=== PATIENT | female | born 1995 | race Caucasian/White ===

== ENCOUNTER 2022-08-20 14:02 | Observation (INO) | payer OTHER, SELFPAY ==
[2022-08-20] VITALS (48 sets, daily range): BP systolic 114–167; BP diastolic 73–118; PULSE 84–122; RESP 12–38; TEMP 36.6; O2SAT 94–100; BMI 27.7
--- NOTE | ~2022-08-20 | CT_ITS ---
EXAMINATION: CT brain wo con INDICATION: Headache COMPARISON: None TECHNIQUE: Standard unenhanced head CT. The dose-length product (DLP) was 681.00 mGy-cm. The mA was a djusted according to patient size. Iterative reconstruction technique was employed. FINDINGS: There is no intracranial hemorrhage, acute infarction, or abnormal mass lesion. The ventric les are normal. There is no abnormal mass effect or midline shift. The martinez-white matter differentiat ion is normal. The basal cisterns are patent. The orbits are normal. There is a polyp or mucous reten tion cyst of the right maxillary sinus. IMPRESSION: 1. No acute intracranial abnormality. Reviewed, dictated and finalized at location A.
--- NOTE | ~2022-08-20 | XR_ITS ---
EXAMINATION: XR chest ET placement DATE: 08/20/2022 14:58 INDICATION: Intubation. Endotracheal tube adjustment. TECHNIQUE: A single frontal view of the chest was obtained. COMPARISON: Chest single view at 2:48 PM FINDINGS: There is mild atelectasis in right lower lung zone. No pleural effusion or pneumothorax. Th e heart size is normal. The endotracheal tube tip is 5.6 cm above the mina. IMPRESSION: 1. Endotracheal tube tip 5.6 cm above the mina. 2. Mild atelectasis in right lower lung zone with interval improvement. Reviewed, dictated and finalized at location A.
--- NOTE | ~2022-08-20 | XR_ITS ---
CORRECTED REPORT order changed [facility] [place] 08/20/22 This report was recreated on 08/20/22. Original report was signed by Ramone Tse M.D. on 08/20/2022 14:45 CDT EXAMINATION: XR chest ET placement DATE: 08/20/2022 14:43 INDICATION: Intubation. TECHNIQUE: A single frontal view of the chest was obtained. COMPARISON: Chest 2 views 08/16/2016 FINDINGS: The right lung is small. There are airspace opacities in all right lung zones, likely atelectasis. No pleural effusion or pneumothorax. The heart size is normal. The endotracheal tube tip is in the left mainstem bronchus. IMPRESSION: 1. Endotracheal tube tip in the left mainstem bronchus. Retraction 5 cm is recommended. I called this result to Dr. Munguia. Reviewed, dictated and finalized at location A. MTDD IMPRESSION: 1. Endotracheal tube tip in the left mainstem bronchus. Retraction 5 cm is emmanuel mmended. I called this result to Dr. Munguia.
--- NOTE | ~2022-08-20 | CT_ITS ---
EXAMINATION: CT abdomen pelvis w con DATE: 08/20/2022 20:24 INDICATION: Abdominal pain. TECHNIQUE: Computed tomography (CT) of the abdomen and pelvis was performed with 100 mL Omnipaque-350 intravenous contrast. Automated exposure control and iterative reconstruction technique were employe d. The dose-length product was 496.27 mGy-cm. COMPARISON: None FINDINGS: Small amount of nonbridging callus formation about healing subacute fractures of the posterior right eighth and ninth ribs. Discoid atelectasis in the right middle and lower lobes. No pleural effusion. Heart size is normal. No pericardial effusion. Small sliding-type hiatal hernia versus wall thickenin g the distal esophagus with urinalysis within the majority. Cholecystectomy clips at the gallbladder fossa. Liver, spleen, pancreas, bilateral adrenal glands and kidneys are normal. Bowels including the appendix are normal. Gas and a Brown catheter within the decompressed bladder. 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 Bilateral adnexa are unremarkable. No free intraperitoneal gas or fluid. No pathologic ally enlarged abdominal or pelvic lymphadenopathy. Chronic appearing mild anterior wedging at T11 and T12. IMPRESSION: 1. No acute intra-abdominal/pelvic process. 2. Small sliding-type hiatal hernia versus distal esophageal wall reinsertion the setting of esophagi tis. 3. 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 4. Healing subacute posterior right eighth and ninth rib fractures. Reviewed, dictated and finalized at location A. IMPRESSION: 1. No acute intra-abdominal/pelvic process. 2. Small sliding-type hiatal hernia versus distal esophageal wall reinsertion t he setting of esophagitis. 3. 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 4. Healing subacute posterior right eighth and ninth rib fractures.
[2022-08-20] MEDS: NALOXONE HCL INJ 2 MG/2 ML AMP IV PUSH ×2 (14:05→14:07)
[2022-08-20 14:13] LABS: Glucose Point of Care 169 mg/dl (65-105)
[2022-08-20] MEDS: ONDANSETRON INJ 4 MG/2 ML VIAL IV PUSH ×2 (14:25→19:13)
[2022-08-20] MEDS: SODIUM CHLORIDE 0.9% IV 1,000 ML 999 ML IV CONT (14:30)
[2022-08-20] MEDS: SUCCINYLCHOLINE CHLORIDE 20 MG/ML 10 ML VIAL 120 MG IV PUSH (14:32)
[2022-08-20] MEDS: ETOMIDATE 20 MG/10 ML AMPUL IV PUSH (14:32)
--- NOTE | 2022-08-20 14:37 | ECG_ITS ---
Measurements Intervals [place] Rate: 95 P: 19 ND: 105 QRS: 72 QRSD: 89 T: 71 QT: 359 QTc: 453 Interpretive Statements SINUS RHYTHM WITH SHORT ND INTERVAL BORDERLINE ECG NO PREVIOUS ECG AVAILABLE FOR COMPARISON Electronically Signed On 08-20-2022 15:58:32 CDT by Matt Boyle D.O.
[2022-08-20] MEDS: MIDAZOLAM HCL (*CRX) 2 MG/2 ML VIAL IV PUSH ×3 (14:42→14:55)
[2022-08-20] MEDS: MIDAZOLAM 100MG/NS 100ML(*CRX) 100 MG/100 ML BAG IV CONT (14:43)
[2022-08-20] MEDS: fentaNYL CITRATE INJ (*CRX) 100 MCG/2 ML VIAL 75 MCG IV PUSH (14:50)
[2022-08-20 14:58] LABS: Base Excess ABG -7.5 mmol/L (0-2); HCO3 ABG 17.9 mmol/L (23-29); Oxygen Content ABG 20.2 %vol (16.0-22.0); Oxygen Saturation ABG 99.3 % (95-97); Oxyhemoglobin 98.5 % (94-100); PCO2 ABG 36.2 mmHg (35-45); PO2 ABG 472.2 mmHg (80-90); Total Hemoglobin 13.7 g/dL (12.0-18.0); pH ABG 7.31 (7.35-7.45)
[2022-08-20 14:59] LABS: Device OTHER DEVICE; Modified Allen's Test Pass; Site Drawn RIGHT RADIAL
[2022-08-20 15:00] LABS: Basophils Absolute Auto 0.06 K/mm3 (0.00-0.10); Basophils Percent Auto 0.5 % (0.0-1.0); Eosinophils Absolute Auto 0.01 K/mm3 (0.02-0.50); Eosinophils Percent Auto 0.1 % (1.0-6.0); Hematocrit 40.9 % (35.0-49.0); Immature Granulocyte Absolute 0.11 K/mm3 (0.00-0.00); Immature Granulocyte Percent A 0.8 % (0.0-0.0); Lymphocytes Absolute Auto 2.93 K/mm3 (1.10-4.50); Lymphocytes Percent Auto 22.3 % (18.0-42.0); Mean Corpuscular HGB Conc 31.8 g/dL (32.0-36.0); Mean Corpuscular Hemoglobin 28.6 pg (27.0-31.0); Mean Corpuscular Volume 89.9 fL (78.0-102.0); Mean Platelet Volume 10.1 fl (9.2-11.8); Monocytes Absolute Auto 0.29 K/mm3 (0.10-0.90); Monocytes Percent Auto 2.2 % (2.0-11.0); Neutrophils Absolute Auto 9.7 K/mm3 (1.7-7.2); Neutrophils Percent Auto 74.1 % (50.0-70.0); Platelet Count Result 369 K/mm3 (150-420); Red Blood Count 4.55 M/mm3 (4.20-5.40); Red Cell Distribution Width 13.9 % (11.6-14.4); White Blood Count 13.1 K/mm3 (4.8-10.8)
[2022-08-20 15:12] LABS: Partial Thromboplastin Time 24.6 SEC (23.90-30.70)
[2022-08-20] MEDS: PROPOFOL IV EMULSION 100 ML 10.8 MG IV CONT (15:14)
[2022-08-20] MEDS: PROPOFOL IV EMULSION 200 MG/20 ML VIAL 10 MG IV PUSH ×2 (15:14→15:55)
[2022-08-20 15:18] LABS: Alanine Aminotransferase 26 U/L (14-59); Albumin Level 3.5 g/dL (3.4-5.0); Alkaline Phosphatase 169 U/L (46-116); Anion Gap 13 mmol/L (8-16); Aspartate Amino Transferase 20 U/L (15-37); Bilirubin,Total 0.3 mg/dL (0.00-1.00); Blood Urea Nitrogen 16 mg/dL (7-18); Calcium 9.1 mg/dL (8.5-10.1); Carbon Dioxide 22 mmol/L (21-32); Chloride 100 mmol/L (98-108); Estimated Glomerular Filt Rate > 60; Glucose 234 mg/dL (70-99); Lactic Acid Reflex 4.9 mmol/L (0.4-2.0); Osmolality Calculated 289 mOsm/kg (285-295); Potassium 4.3 mmol/L (3.5-5.1); Sodium 135 mmol/L (136-145); Total Protein 7.5 g/dL (6.4-8.2); Troponin I 4.4 ng/L (0.00-60.4)
[2022-08-20 15:19] LABS: Ammonia < 10 umol/L (11-32)
--- NOTE | 2022-08-20 15:49 | ED.GENADULT ---
HPI - General Adult General Chief complaint: Altered Mental Status <Suraj Munguia DO - Last Filed: 08/21/22 08:14> Stated complaint: unresponsive <Suraj Munguia DO - Last Filed: 08/21/22 08:14> Time Seen by Provider: 08/20/22 20:16 <Suraj Munguia DO - Last Filed: 08/21/22 08:14> History of Present Illness HPI narrative: Sushila is a 26F that was brought in by a man (unknown relationship) and he stated that she was fine this morning but then went unresponsive. He said she was a diabetic and used to do methamphetamine. Shortly after this he left and no further history could be obtained due to altered mental status. <Suraj Munguia DO - Last Filed: 08/21/22 08:14> Related Data Home medications: Home Medications Medication Instructions Recorded Confirmed insulin lispro 100 unit/mL 15 unit subcut TID PRN low blood 08/20/22 08/20/22 subcutaneous solution (Humalog sugar U-100 Insulin) <Suraj Munguia DO - Last Filed: 08/21/22 08:14> Allergies/adverse reactions: Allergies Allergy/AdvReac Type Severity Reaction Status Date / Time amoxicillin [Augmentin] Allergy Intermediate Unknown Verified 08/20/22 15:42 clavulanic acid [Augmentin] Allergy Intermediate Unknown Verified 08/20/22 15:42 metoclopramide [Reglan] Allergy Intermediate Unknown Verified 08/20/22 15:42 Penicillins Allergy Intermediate Unknown Verified 08/20/22 15:42 <Suraj Munguia DO - Last Filed: 08/21/22 08:14> Review of Systems Review of Systems: ROS unobtainable: Yes unobtainable due to endotracheal tube <Suraj Munguia DO - Last Filed: 08/21/22 08:14> [facility] Social History Social History: Social History Smoking status: Never smoker Substance use: current Substance use type: marijuana and sedatives Last use: 08/20/22 Spiritual care concerns: No <Suraj Munguia DO - Last Filed: 08/21/22 08:14> Exam Const: Nutritional Appearance: well nourished <Suraj PAlmita Munguia, DO - Last Filed: 08/21/22 08:14> Other: Sushila was comatose and would only intermitently respond to pain <Suraj P. Ezra, DO - Last Filed: 08/21/22 08:14> HENMT: Ears: external ears normal <Suraj P. Ezra, DO - Last Filed: 08/21/22 08:14> General nose exam: Normal external nose present <Suraj P. Ezra, DO - Last Filed: 08/21/22 08:14> Face and sinus: normal facial exam <Suraj P. Ezra, DO - Last Filed: 08/21/22 08:14> Mouth: Yes Normal oral and palatal mucosa present <Suraj P. Ezra, DO - Last Filed: 08/21/22 08:14> Other: Normocephalic, atraumatic <Suraj PAlmita Munguia, DO - Last Filed: 08/21/22 08:14> Eyes: Conjunctivae: conjunctivae normal <Suraj P. Ezra, DO - Last Filed: 08/21/22 08:14> Other: Pinpoint pupils <Suraj P. Ezra, DO - Last Filed: 08/21/22 08:14> Neck: Other: NOrmal to inspection <Suraj P. Ezra, DO - Last Filed: 08/21/22 08:14> Chest: Other: NO deformity <Suraj PAlmita Munguia, DO - Last Filed: 08/21/22 08:14> Resp: Other: Snoring respirations <Suraj P. Ezra, DO - Last Filed: 08/21/22 08:14> Cardio: Rate: regular rate <Suraj P. Ezra, DO - Last Filed: 08/21/22 08:14> Rhythm: regular rhythm <Suraj P. Ezra, DO - Last Filed: 08/21/22 08:14> Heart sounds: no murmurs <Suraj P. Ezra, DO - Last Filed: 08/21/22 08:14> GI: Other: Decreased bowel sounds, No deformity <Suraj P. Buschling, DO - Last Filed: 08/21/22 08:14> Skin: General skin exam: normal color <Suraj Munguia DO - Last Filed: 08/21/22 08:14> Neuro: General: moves all extremities <Suraj Munguia DO - Last Filed: 08/21/22 08:14> Other: Erratic neuro exam. Most of the time he would not respond to any commands, and did spontaneously open her eyes twice. However, almost all the time she minimally withdrew from pain (sternal rub), never spoke, and never followed a command She did move all extre
[2022-08-20 16:09] LABS: Appearance Urine Clear (Clear); Bilirubin Urine Negative (Negative); Color Urine Light Yellow (Yellow); Glucose Urine UA 3+ (Negative); Ketones Urine 2+ (Negative); Leukocyte Esterase Ur Negative LEU/UL (Negative); Nitrate Urine Negative (Negative); Protein Urine Trace (Negative); Specific Grav Ur 1.025 (1.010-1.020); Urobilinogen Urine 0.2 mg/dL (0.2-1.0); pH Urine 5.5 (5.0-8.0)
[2022-08-20 16:16] LABS: Add Urine Microscopic? YES; Blood Urine Trace-Intact (Negative)
[2022-08-20 16:18] LABS: RBC Urine 0-2 /hpf (0-2)
[2022-08-20 16:19] LABS: Bacteria Urine Trace /hpf; Squamous Epithelial Cell Urine Few /hpf (Few); WBC Urine None seen /hpf (0-3)
[2022-08-20 16:22] LABS: Amphetamine Screen Urine Negative (Negative); Barbiturate Screen Urine Negative (Negative); Benzodiazepines Screen Urine Positive (Negative); Cannabinoid Screen Urine Positive (Negative); Cocaine Screen Urine Negative (Negative); Methadone Screen Urine Negative (Negative); Opiate Screen Urine Negative (Negative); Phencyclidine Screen Urine Negative (Negative)
[2022-08-20 16:48] LABS: Lipase 52 U/L (73-393)
[2022-08-20 17:00] LABS: Urine Pregnancy Test Negative
--- NOTE | 2022-08-20 17:00 | PC.NURSE ---
[address] with RT NURSE AND TECH 1520 PT THREW UP AROUND TUBE MEDS GIVEN 1530 PT PUT ON VENT 1558 GONZALEZ CATH PLACED 1625 PT EXTUBATED HER SELF
[2022-08-20 17:01] LABS: Pregnancy On Board Control Positive
--- NOTE | 2022-08-20 17:31 | PC.NURSE ---
1443 VERSED GTT STARTED AT 5MG/HR AND STOPPED AT 1625 PROPOFOL STARTED AT 1514 BOLUS 10ML GIVEN AND GTT AT 10.8MCG/KG/MIN THEN AT 1555 PROPOFOL INCREASED TO 21.6 MCG/KG/MIN AND 10ML BOLUS GIVEN
[2022-08-20 17:55] LABS: Reflex Lactic Acid Yes or No Add Lactic
--- NOTE | 2022-08-20 19:05 | PC.NURSE ---
Care resumed, pt is alert upon entering room, having dry heaves and c/o severe abd cramping and pain. Pt given Zofran as per order but is refusing an abd CT at this time until she speaks to Dr. MOREJON informed that pt wishes to speak to him before having the CT.
[2022-08-20 19:27] LABS: Lactic Acid 1.7 mmol/L (0.4-2.0)
[2022-08-20] MEDS: PANTOPRAZOLE SODIUM IV 40 MG VIAL IV PUSH (19:51)
[2022-08-20] MEDS: HALOPERIDOL LACTATE 5 MG/ML VIAL IV PUSH (19:53)
[2022-08-20 21:03] LABS: Glucose Point of Care 444 mg/dl (65-105)
--- NOTE | 2022-08-20 21:04 | PC.NURSE ---
Pts finger stick BS is at 444, orders obtained from ERP. Pt is A&O x3 and answers all questions appropriately when asked by Dr Scanlon. Pt still has c/o abd pains, CT results explained to pt being negative results. POC discussed c pt. Monitor shows SR, call placed to [place] for transfer.
--- NOTE | 2022-08-20 21:10 | PC.NURSE ---
Spoke to yoni Fischer supv at [place], info given to have pt admitted here since she is medical and doesn't need ICU or IMU status. Call back placed to [facility] Do. Unable to reach at this time, awaiting hospitalist to call back.
[2022-08-20] MEDS: SODIUM CHLORIDE 0.9% IV 500 ML 999 ML IV CONT (21:15)
--- NOTE | 2022-08-20 21:32 | PC.NURSE ---
Call back from [place], [facility] spoke to Dr Scanlon and accepted for admit. Pt will be 23 hr obs.
[2022-08-20 21:50] LABS: Acetone Small (Negative)
[2022-08-20] MEDS: SODIUM CHLORIDE 0.9% IV 1,000 ML 150 ML IV CONT (21:54)
--- NOTE | 2022-08-20 21:56 | PC.NURSE ---
Monitor dc'd and urinary catheter removed and dc'd per ERP order. Pt will go to Rm 206, call placed to special agent in chargeZEKE Oshea RN. Recheck of pts BS noted to be 444, order for 12Units SQ obtained from Dr Scanlon.
[2022-08-20 21:59] LABS: Glucose Point of Care 444 mg/dl (65-105)
[2022-08-20] MEDS: INSULIN HUMAN REGULAR (*BKC) 100 UNITS/ML 12 UNITS SUB-Q (21:59)
--- NOTE | 2022-08-20 22:35 | ADMGEN ---
This patient, Sushila Gregory, was admitted to 2nd Floor Room 206-1. Patient/family oriented to hospital policies and general routines including ID bracelet, bed and alarms, visiting hours, pain management, procedures, bathroom and other care routines, personal items, smoking policy, room service/diet, and visiting hours. Information on how to activate the Rapid Response Team has been discussed. Patient/Family are encouraged to report perceived risks to care and to ask questions if they do not understand what they are told or what they should do.
[2022-08-20 22:45] LABS: Glucose Point of Care 441 mg/dl (65-105)
[2022-08-20] MEDS: ACETAMINOPHEN 325 MG TABLET 650 MG PO (22:59)
[2022-08-21] VITALS: BP 154/87; PULSE 113; RESP 18; TEMP 36.7; O2SAT 99
[2022-08-21 00:19] LABS: Glucose Point of Care 195 mg/dl (65-105)
[2022-08-21 05:29] LABS: Hematocrit 35.8 % (35.0-49.0); Hemoglobin 11.3 g/dL (12.0-15.0); Mean Corpuscular HGB Conc 31.6 g/dL (32.0-36.0); Mean Corpuscular Hemoglobin 28.5 pg (27.0-31.0); Mean Corpuscular Volume 90.2 fL (78.0-102.0); Mean Platelet Volume 9.8 fl (9.2-11.8); Platelet Count Result 328 K/mm3 (150-420); Red Blood Count 3.97 M/mm3 (4.20-5.40); Red Cell Distribution Width 13.8 % (11.6-14.4); White Blood Count 13.6 K/mm3 (4.8-10.8)
[2022-08-21] MEDS: ACETAMINOPHEN 325 MG TABLET 650 MG PO (05:57)
[2022-08-21 06:02] LABS: Alanine Aminotransferase 20 U/L (14-59); Albumin Level 2.8 g/dL (3.4-5.0); Alkaline Phosphatase 140 U/L (46-116); Anion Gap 13 mmol/L (8-16); Aspartate Amino Transferase 14 U/L (15-37); Bilirubin,Total 0.5 mg/dL (0.00-1.00); Blood Urea Nitrogen 10 mg/dL (7-18); Calcium 8.1 mg/dL (8.5-10.1); Carbon Dioxide 20 mmol/L (21-32); Chloride 101 mmol/L (98-108); Estimated CRCL calculation 96 ml/min; Estimated Glomerular Filt Rate > 60; Glucose 248 mg/dL (70-99); Osmolality Calculated 285 mOsm/kg (285-295); Sodium 134 mmol/L (136-145); Total Protein 6.1 g/dL (6.4-8.2)
[2022-08-21 08:00] VITALS: BP 98/61; PULSE 107; RESP 14; TEMP 36.6; O2SAT 97
[2022-08-21 08:02] LABS: Glucose Point of Care 394 mg/dl (65-105)
[2022-08-21] MEDS: ENOXAPARIN 40 MG/0.4 ML SYRINGE SUB-Q (08:54)
[2022-08-21] MEDS: PANTOPRAZOLE SODIUM IV 40 MG VIAL IV PUSH (08:55)
[2022-08-21 11:48] LABS: Glucose Point of Care 328 mg/dl (65-105)
[2022-08-21] MEDS: ONDANSETRON INJ 4 MG/2 ML VIAL IV PUSH (11:48)
[2022-08-21] MEDS: hydrOXYzine HCL 25 MG TABLET 50 MG PO (11:49)
[2022-08-21] MEDS: DICYCLOMINE HCL 10 MG CAPSULE 20 MG PO (11:49)
--- NOTE | 2022-08-21 11:51 | PC.NURSE ---
given bentyl for abd pain and zofran and hydroxizine for anxiety
[2022-08-21] MEDS: NALTREXONE HCL 50 MG TABLET PO (12:02)
--- NOTE | 2022-08-21 12:07 | PM.IMHP ---
H&P: HPI History of Present Illness Date/Time: 08/21/22 12:07 Chief Complaint: Unresponsive Narrative: This is a 26-year-old female who presented to our emergency department unresponsive. She has a past medical history of diabetes and substance abuse. Patient is unsure of what occur that into her here in the emergency department. Patient notes that she has been clean from drugs for quite some time now. She questions how amphetamines were found in her system. Once she was educated on what amphetamines was she notes that while she was at her mom's house a couple days ago she had abdominal pain and her mom gave her one of her Xanax. While in the emergency room patient was intubated per notes and self at that extubated herself. Patient was initially refused for admission due to hypotension and recent intubation. After several hours of being in the emergency department and an improvement with her blood pressure patient was admitted. Vital signs in ER 97.8, 107, 14, 9861, 97% on 4 L nasal cannula WBCs 13.1, hemoglobin 13.0, hematocrit 40.9, platelets 396, sodium 135, K4.3, BUN 16, creatinine 0.94, glucose 444, total bilirubin 0.3, AST 20, ALT 26, troponin 4.4, lactic acid 4.9, UA positive for protein glucose ketones CT of the head abdomen and chest x-ray unremarkable. Patient admitted for altered mental status . The patient denies SOB, CP, palpitation, extremity numbness, lightheadedness, dizziness, constipation, diarrhea, chills, or fever. She does have nausea and vomiting. Patient notes that she has not had any illegal drugs in several and she is going. Review of Systems Review of Systems: A 14 organ system Review of Systems was performed and pertinent positives included in the HPI, otherwise remaining ROS is negative. [facility] Social History Social History Smoking status: Never smoker Substance use: current Substance use type: marijuana and sedatives Last use: 08/20/22 Spiritual care concerns: No Meds Home Medications and Allergies Home Medications Medication Instructions Recorded Confirmed Type insulin lispro 100 unit/mL 15 unit subcut TID PRN low blood 08/20/22 08/20/22 History subcutaneous solution (Humalog sugar U-100 Insulin) naltrexone 50 mg tablet 50 mg PO DAILY 08/21/22 08/21/22 History Allergies Allergy/AdvReac Type Severity Reaction Status Date / Time amoxicillin [Augmentin] Allergy Intermediate Unknown Verified 08/20/22 15:42 clavulanic acid [Augmentin] Allergy Intermediate Unknown Verified 08/20/22 15:42 metoclopramide [Reglan] Allergy Intermediate Unknown Verified 08/20/22 15:42 Penicillins Allergy Intermediate Unknown Verified 08/20/22 15:42 Vital Signs Vital Signs - 24 hr 08/20/22 15:30 08/20/22 14:51 08/20/22 14:58 Temperature Pulse Rate 122 H 100 Respiratory Rate 21 H 12 Blood Pressure 146/100 H Pulse Oximetry 100 100 Oxygen Delivery Mechanical Ventilation Mechanical Ventilation Mechanical Ventilation Oxygen Flow Rate 08/20/22 15:00 08/20/22 15:01 08/20/22 15:06 Temperature Pulse Rate 119 H 99 119 H Respiratory Rate 23 H 16 25 H Blood Pressure 155/105 H 152/113 H Pulse Oximetry 100 100 100 Oxygen Delivery Mechanical Ventilation Mechanical Ventilation Mechanical Ventilation Oxygen Flow Rate 08/20/22 15:15 08/20/22 15:16 08/20/22 15:31 Temperature Pulse Rate 103 H 98 99 Respiratory Rate 38 H 22 H Blood Pressure 133/85 131/86 Pulse Oximetry 100 100 100 Oxygen Delivery Bag Valve Mask Bag Valve Mask Bag Valve Mask Oxygen Flow Rate 08/20/22 15:32 08/20/22 15:33 08/20/22 15:45 Temperature Pulse Rate 96 99 96 Respiratory Rate 19 12 12 Blood Pressure 153/99 H Pulse Oximetry 100 100 100 Oxygen Delivery Bag Valve Mask Bag Valve Mask Mechanical Ventilation Oxygen Flow Rate 08/20/22 15:46 08/20/22 15:14 08/20/22 15:47 Temperature Pulse Rate 97 100 98 Respiratory Ra
[2022-08-21 13:00] LABS: Basophils Absolute Auto 0.06 K/mm3 (0.00-0.10); Basophils Percent Auto 0.4 % (0.0-1.0); Eosinophils Absolute Auto 0.04 K/mm3 (0.02-0.50); Eosinophils Percent Auto 0.3 % (1.0-6.0); Hematocrit 38.4 % (35.0-49.0); Hemoglobin 11.9 g/dL (12.0-15.0); Immature Granulocyte Absolute 0.11 K/mm3 (0.00-0.00); Immature Granulocyte Percent A 0.7 % (0.0-0.0); Lymphocytes Absolute Auto 3.34 K/mm3 (1.10-4.50); Lymphocytes Percent Auto 20.9 % (18.0-42.0); Mean Corpuscular Hemoglobin 28.4 pg (27.0-31.0); Mean Corpuscular Volume 91.6 fL (78.0-102.0); Mean Platelet Volume 9.7 fl (9.2-11.8); Monocytes Absolute Auto 0.62 K/mm3 (0.10-0.90); Monocytes Percent Auto 3.9 % (2.0-11.0); Neutrophils Absolute Auto 11.8 K/mm3 (1.7-7.2); Neutrophils Percent Auto 73.8 % (50.0-70.0); Platelet Count Result 337 K/mm3 (150-420); Red Blood Count 4.19 M/mm3 (4.20-5.40); Red Cell Distribution Width 13.9 % (11.6-14.4)
--- NOTE | 2022-08-21 15:24 | PC.NURSE ---
Pt sitting bedside visiting c family in room. Upon assessment pt is voicing opinion c her family on what occurred yesterday. She wants to leave and go home, stating she is feeling fine and angry c her b-friend. Pts aunt and friend are willing to take her home at this time, she states if she can't get d/c papers she will sign AMA. Pt is A&O x4, walks steadily around room and wants to go home and will continue to check her BS at home and f/u c her FMD.
--- NOTE | 2022-08-21 15:31 | PC.NURSE ---
Call placed by charge nurse ZEKE Galaviz to BREN[facility] Do for orders, awaiting call back.
[2022-08-21 15:32] VITALS: BP 128/74; PULSE 100; RESP 20; O2SAT 98
--- NOTE | 2022-08-21 15:36 | PC.NURSE ---
provider josesito notified of pt's desire to leave with her aunt, aunt is agreeable to take pt home and care for her, inpatient care manager rn does not feel the pt should leave due to her uncontrolled sugar levels, pt made aware of this and wants to leave ama, nurse is aware and will discuss risks with pt and family
--- NOTE | 2022-08-21 15:40 | PC.NURSE ---
Charge nurse spoke to BRENDA Do and then spoke c pt about needing to sign AMA if she wants to leave due to her BS elevated readings. Pt insistent that she isn't staying and want to leave AMA. Discussed risks/benefits and reason to stay and pt still signed AMA paperwork. Aunt here and going to take pt home c her.
--- NOTE | 2022-08-21 15:45 | PC.NURSE ---
X2 IV sites d/c'd and pt given instruction on d/c f/u c her FMD and taking her BS at home. Pt is agreeable to all instructions given and states she has been dealing c elevated BS for years ansd knows how to care for it at home. After signing paperwork pt left ambulatory steadily from room c her aunt and friend.
--- NOTE | 2022-08-22 14:44 | PC.NURSE ---
Invalid phone number.
== END 2022-08-21 15:45 | disposition left against medical advice (07) ==
LOC: CHSED 21:34 → CHS2ND 22:05
PROVIDERS: Family Medicine; Nurse Practitioner; Admitting Provider Internal Medicine; Emergency Provider Emergency Medicine; Visit Provider Internal Medicine
DX: F12.10 Cannabis abuse, uncomplicated (principal); F13.10 Sedative, hypnotic or anxiolytic abuse, uncomplicated; E11.9 Type 2 diabetes mellitus without complications; R10.9 Unspecified abdominal pain; Z79.4 Long term (current) use of insulin
CPT/HCPCS: 31500; 36415; 36600; 70450; 74177; 80053; 80307; 81001; 81025; 82010; 82140; 82805; 82948; 83605; 83690; 84484; 85025; 85027; 85730; 87040; 93005; 96361; 96365; 96366; 96368; 96372; 96374; 96375; 96376; 99285; A9270; C9113; G0378; G0379; J0131; J0330; J1630; J1650; J1815; J2250; J2310; J2405; J2704; J3010; J7030; J7040; Q9967